=== PATIENT | female | born 1995 | race Hispanic/Latino ===

== ENCOUNTER 2018-02-19 10:16 | Emergency (ER) | payer MEDICAID ==
[2018-02-19 11:07] LABS: RAPID GROUP A STREP NEGATIVE (NEGATIVE)
== END 2018-02-19 12:16 | disposition home or self-care (01) ==
LOC: EDH 10:16
DX: J06.9 Acute upper respiratory infection, unspecified (principal); J02.9 Acute pharyngitis, unspecified
CPT/HCPCS: 87804; 87880